=== PATIENT | female | born 1995 | race Caucasian/White ===

== ENCOUNTER 2018-06-08 11:35 | Emergency (ER) | payer MEDICAID, SELFPAY ==
[2018-06-08 11:36] VITALS: BP 119/72; PULSE 81; RESP 14; TEMP 36.8; O2SAT 99; BMI 22.1
--- NOTE | 2018-06-08 11:47 | ED.VISSUMM ---
- ER Visit Summary Date of Service: 06/08/18 Chief Complaint: Dysuria History of Present Illness: The patient is a 22 F presents to the emergency department dysuria. Patient symptoms began today. She has had some pain with urination and some urinary frequency. 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 States yesterday, they actually dipped urine. She states hers is positive for leukocytes and nitrites. She had no symptoms at that time. She did have a urinary tract infection about 3 weeks ago. She was placed on Bactrim. She denies any fevers or chills. She denies any nausea or vomiting. Physical Examination: Vital signs reviewed General: Well-nourished, well-developed Head: Normocephalic, atraumatic Eyes: Pupils equal and reactive, extraocular muscles intact Neck, supple, no lymphadenopathy Heart: Regular rate and rhythm Respiratory: No distress, clear bilaterally Abdomen: Soft, nontender, nondistended, no peritoneal signs Back: Nontender Extremities: Nontender, no edema, no cords Skin: Normal color no rash Neuro: Alert and oriented, no focal or lateralizing deficits Test Results: [] Emergency Department Course and Treatment: Urine was obtained. There is evidence of infection. The patient is not . She will be started on Macrobid. She has no flank pain. She has no other systemic symptoms. I have no concern for pyelonephritis. She will be discharged home. Treatment Plan: [] Disposition: Discharge Impression: 1. Acute cystitis This note was generated with [employer] dictation software. It may contain incorrect words, spelling, and punctuation that were not noted in review of the chart prior to signing ED Disposition - Plan for ED Patient: Chief Complaint: Complaint Instructions: ED UTI Cystitis Female Prescriptions: Nitrofurantoin Macrocrystals [Macrobid] 100 mg PO Q12 #14 cap Referrals: Care Physician,No Primary [NON-STAFF] -
[2018-06-08 11:48] LABS: Bacteria 0 SEEN /hpf (None Seen); Mucous, Urine 0 SEEN /hpf (<or=2+); Red Blood Cells-Urine 0 SEEN /hpf (0-5); Squamous Epithelial Cells - UA 0 SEEN /hpf (5-10)
[2018-06-08 11:51] LABS: Color, Urine Straw (Yellow); Glucose, Dipstick Normal (Normal); Ketone-Dipstick Negative (Negative); Leukocyte Esterase-Dipstick 500 /ul (Negative); Nitrite-Dipstick Negative (Negative); Occult Blood-Urine 250 /ul (Negative); Protein-Dipstick 15 mg/dl (Negative); Urine Bilirubin Dipstick Negative (Negative); Urine Clarity Sl. Cloudy (Clear); Urine Urobilinogen Normal (Normal)
[2018-06-08 11:57] LABS: White Blood Cells >100 SEEN /hpf (0-5)
[2018-06-08 11:58] LABS: Internal QC Validated? YES +Cl - CLEAR BKGD; Pregnancy, Urine Negative Negative
[2018-06-08] MEDS: Nitrofurantoin Macrocrystals 100 MG Capsule PO (12:42)
[2018-06-08 12:43] VITALS: RESP 14
== END 2018-06-08 12:43 | disposition home or self-care (01) ==
LOC: ED 12:31
PROVIDERS: Emergency Provider Emergency Medicine; Family Provider Family Medicine; PCP Family Medicine
DX: N30.00 Acute cystitis without hematuria (principal)
CPT/HCPCS: 81001; 81025; 99282

== ENCOUNTER 2018-10-08 10:58 | Emergency (ER) | payer MEDICAID, SELFPAY ==
[2018-10-08 11:00] VITALS: BP 101/72; PULSE 99; RESP 17; TEMP 36.9; O2SAT 96; BMI 22.8
[2018-10-08 13:58] VITALS: O2SAT 92
[2018-10-08 14:03] VITALS: PULSE 117; O2SAT 92
--- NOTE | 2018-10-08 14:40 | ED.DCSUM_ITS ---
- ER Visit Summary Date of Service: 10/08/18 Chief Complaint: Cough and congestion History of Present Illness: The patient is a 23 F who presents with cough and congestion for the past 3 days. No fever or chills no chest pain or shortness of breath she is quite a bit of headache. Physical Examination: Not appear in acute distress. Moist mucous membranes, no obvious facial deformity. She has sinus tenderness postnasal drip. No C-spine tenderness supple neck. Regular rate and rhythm without any obvious murmurs Clear lungs bilaterally speaking in full sentences without any obvious respiratory distress Abdomen soft and nontender no guarding or rebound Moves all extremities without any difficulty or pain. Skin does not show any obvious rashes or lesions, no trauma. Alert oriented ?3 with no gross focal deficit Emergency Department Course and Treatment: Patient has sinusitis, she may have some bronchitis based on her cough. She will be treated. Discharge stable condition Impression: [Acute bronchitis] This note was generated with [employer] dictation software. It may contain incorrect words, spelling, and punctuation that were not noted in review of the chart prior to signing ED Disposition - Plan for ED Patient: Disposition: Home or Assisted Living Instructions: Acute Bronchitis, ED Sinusitis Abx Tx Prescriptions: Albuterol IH (ProAir) [Proair Hfa (SP)Vent Pts] 1 puff INHALATION Q4H PRN PRN #1 inhaler PRN Reason: Cough Azithromycin 250 mg PO DAILY #6 tab Guaifenesin [Mucinex] 600 mg PO BID #8 [id number] Referrals: Maddy Caceres MD [Primary Care Provider] - 3-5 Days
[2018-10-08 14:47] VITALS: PULSE 100; RESP 18; O2SAT 96
== END 2018-10-08 14:49 | disposition home or self-care (01) ==
PROVIDERS: Emergency Provider Emergency Medicine; Family Provider Family Medicine; PCP Family Medicine
DX: J20.9 Acute bronchitis, unspecified (principal); J32.9 Chronic sinusitis, unspecified; J06.9 Acute upper respiratory infection, unspecified
CPT/HCPCS: 99282